=== PATIENT | male | born 1990 | race Caucasian/White ===

== ENCOUNTER 2021-06-27 05:03 | Emergency (ER) | payer SELFPAY ==
[2021-06-27] MEDS ORDERED: NORFLEX 100 MG100 MG PO (05:50)
== END 2021-06-27 05:58 | disposition home or self-care (01) ==
LOC: ER1 05:03
DX: M54.12 Radiculopathy, cervical region (principal); F17.210 Nicotine dependence, cigarettes, uncomplicated; Z88.0 Allergy status to penicillin; Z88.1 Allergy status to other antibiotic agents; Z88.5 Allergy status to narcotic agent
CPT/HCPCS: 99283